=== PATIENT | male | born 1970 | race Caucasian/White ===

== ENCOUNTER 2019-11-04 15:26 | Observation (INO) | payer BC ==
[2019-11-05 06:39] VITALS: RESP 16
[2019-11-05 11:10] VITALS: BP 148/77; PULSE 70; TEMP 98.1
== END 2019-11-05 15:25 | disposition home or self-care (01) ==
LOC: EC 15:26 → INTOOBSV 19:18 → 3SCARD 19:18 → UNDODISIN 11-05 15:25
PROVIDERS: ADMIT Hospitalist; ATTEND Hospitalist
DX: I16.0 Hypertensive urgency (principal); I10 Essential (primary) hypertension; M19.079 Primary osteoarthritis, unspecified ankle and foot; I45.10 Unspecified right bundle-branch block; J32.2 Chronic ethmoidal sinusitis; J32.3 Chronic sphenoidal sinusitis; Z79.899 Other long term (current) drug therapy; Z82.49 Family history of ischemic heart disease and other diseases of the circulatory system; Z82.3 Family history of stroke
CPT/HCPCS: 96376; 96361; 96374; 99285; 36415; 93005; 80053; 83735; 84484; 85025; 85610; 85730; 71046; 70450; G0378 ×2; J0360

== ENCOUNTER 2024-06-16 20:14 | Observation (INO) | payer BC ==
--- NOTE | 2024-06-16 20:50 | ED ---
Abdominal Pain HPI - General Chief Complaint: Abdominal Pain Stated Complaint: ABD Pain, Fever, Diahrrea Time Seen by Provider: 06/16/24 20:40 Source: patient, RN notes reviewed Mode of arrival: ambulatory Limitations: no limitations - History of Present Illness Initial Comments: This is a 53-year-old male who presents to the emergency department for abd ominal pain. Over the last 2 weeks he has been dealing with centralized abdominal pain that seems to be worse on the left side. Reports associated diarrhea and nausea. Having diarrhea at least 10 times a day. He initially went to urgent care and was started on Cipro and Flagyl. He finished both of these medications, but states that the pain continues to get worse. Started developing fevers over the last few days. Denies any history of similar pain in the past. MD Complaint: abdominal pain - Related Data Previous Rx's Medication Instructions Recorded amLODIPine [Norvasc] 10 mg PO DAILY #30 tab 11/05/19 Allergies Allergy/AdvReac Type Severity Reaction Status Date / Time No Known Allergies Allergy Verified 06/16/24 20:28 Review of Systems ROS Statement: Those systems with pertinent positive or pertinent negative responses have been documented in the HPI. ROS Other: All systems not noted in ROS Statement are negative. Past Medical History Past Medical History: No Reported History Additional Past Medical History / Comment(s): arthritis in his foot History of Any Multi-Drug Resistant Organisms: None Reported Past Surgical History: Hernia Repair Additional Past Surgical History / Comment(s): hernia repair x2 Additional Past Anesthesia/Blood Transfusion Reaction / Comment(s): per pts. they were told he stopped breathing during his hernia repair and had to be intubated Past Psychological History: No Psychological Hx Reported Smoking Status: Never smoker Past Alcohol Use History: None Reported Past Drug Use History: None Reported - Past Family History Father Family Medical History: Coronary Artery Disease (CAD), CVA/TIA General Exam Limitations: no limitations General appearance: alert, in no apparent distress Head exam: Present: atraumatic, normocephalic, normal inspection Respiratory exam: Present: normal lung sounds bilaterally. Absent: respiratory distress, wheezes, rales, rhonchi, stridor Cardiovascular Exam: Present: regular rate, normal rhythm, normal heart sounds. Absent: systolic murmur, diastolic murmur, rubs, gallop, clicks GI/Abdominal exam: Present: soft, tenderness (diffuse), normal bowel sounds. Absent: distended Neurological exam: Present: alert, oriented X3, CN II-XII intact Psychiatric exam: Present: normal affect, normal mood Skin exam: Present: warm, dry, intact, normal color. Absent: rash Course Vital Signs 06/16/24 06/17/24 06/17/24 20:25 04:41 05:17 Temperature 101.2 F H 97.7 F Pulse Rate 110 H 77 77 Respiratory 18 16 16 Rate Blood Pressure 158/83 116/64 132/84 O2 Sat by Pulse 97 99 97 Oximetry Medical Decision Making - Medical Decision Making This is a 53 year old male who presents to the emergency department for abdominal pain. Was pt. sent in by a medical professional or institution? @ -No Did you speak to anyone other than the patient for history? @ -No Did you review nursing and triage notes? @ -Yes, and I agree, it is accurate with regards to the patient's symptoms. Were old charts reviewed? @ -No Differential Diagnosis? @ -Differential Abdominal Pain Men: Appendicitis, cholecystitis, diverticulosis, ischemic bowel, pancreatitis, hepatitis, UTI, gastroenteritis, AAA, incarcerated hernia, bowel obstruction, constipation, inflammatory bowel, hepatitis, peptic ulcer disease, splenic infarction, perforated viscus, testicular torsion, this is not meant to be an all-inclusive list EKG interpreted by me (3pts min.)? @ -Not obtained X-rays interpreted by me (1pt min.)? @ -Not obtained CT interpreted by me (1pt min.)? @ -CT scan of the abdomen and pelvis obtained. My interpretation identifies no dilation of the bowel loops. U/S interpreted by me (1pt. min.)? @ -Not obtained What testing was considered but not performed? (CT, X-rays, U/S, labs)? Why? @ -None What meds were considered but not given? Why? @ -None Did you discuss the management of the patient with other professionals? @ -Yes, Dr. Mckeon, who accepts the patient for admission. Did you reconcile home meds? @ -No Was smoking cessation discussed for >3mins.? @ -No Was critical care preformed (if so, how long)? @ -No Were there social determinants of health that impacted care today? How? (Homelessness, low income, unemployed, alcoholism, drug addiction, transport ation, low edu. Level, literacy, decrease access to med. care, senior living, rehab)? @ -No Was there de-escalation of care discussed even if they declined? (Discuss DNR or withdrawal of care, Hospice)? @ -No What co-morbidities impacted this encounter? (DM, HTN, Smoking, COPD, CAD, Cancer, CVA, Hep., AIDS, mental health diagnosis, sleep apnea, morbid obesity)? @ -None Was patient admitted / discharged? @ -Admitted. Patient was febrile and tachycardic on arrival. Lab work demonstrates leukocytosis. CT scan of the abdomen and pelvis demonstrates acute uncomplicated colitis involving the transverse and left colon suggestive of inflammatory or infectious colitis. The leukocytosis with associated fever and progressive symptoms is concerning for infection. Patient admitted to medicine for infectious colitis and failed outpatient management. Consult placed for ID. C. diff and stool culture ordered and pending at the time of admission. Started on Zosyn in the mean time as he has already been on a trial of Cipro and Flagyl. Case discussed with ED attending, Dr. Hernandez. Undiagnosed new problem with uncertain prognosis? @ -None Drug Therapy requiring intensive monitoring for toxicity (Heparin, Nitro, Insulin, Cardizem)? @ -None Were any procedures done? @ -None Diagnosis/symptom? @ -Infectious colitis Acute, or Chronic, or Acute on Chronic? @ -Acute Uncomplicated (without systemic symptoms) or Complicated (systemic symptoms)? @ -Complicated Side effects of treatment? @ -None Exacerbation, Progression, or Severe Exacerbation] @ -Not applicable Poses a threat to life or bodily function? @ -Yes, worsening infection can lead to septic shock and - Lab Data Result diagrams: 06/16/24 20:54 06/16/24 20:54 Lab Results 06/16/24 06/16/24 06/16/24 Range/Units 20:54 20:54 20:54 WBC 14.6 H (3.8-10.6) k/uL RBC 4.97 (4.30-5.90) m/uL Hgb 14.7 (13.0-17.5) gm/dL Hct 43.6 (39.0-53.0) % MCV 87.6 (80.0-100.0) fL MCH 29.5 (25.0-35.0) pg MCHC 33.7 (31.0-37.0) g/dL RDW 12.9 (11.5-15.5) % Plt Count 258 (150-450) k/uL MPV 7.1 Neutrophils % 86 % Lymphocytes % 6 % Monocytes % 7 % Eosinophils % 1 % Basophils % 0 % Neutrophils # 12.5 H (1.3-7.7) k/uL Lymphocytes # 0.8 L (1.0-4.8) k/uL Monocytes # 1.0 (0-1.0) k/uL Eosinophils # 0.2 (0-0.7) k/uL Basophils # 0.0 (0-0.2) k/uL Sodium 134 L (137-145) mmol/L Potassium 4.2 (3.5-5.1) mmol/L Chloride 104 (98-107) mmol/L Carbon Dioxide 23 (22-30) mmol/L Anion Gap 7 mmol/L BUN 20 (9-20) mg/dL Creatinine 1.11 (0.66-1.25) mg/dL Est GFR (CKD-EPI)AfAm 87 (>60 ml/min/1.73 sqM) Est GFR (CKD-EPI)NonAf 76 (>60 ml/min/1.73 sqM) Glucose 99 (74-99) mg/dL Plasma Lactic Acid Jian 1.2 (0.7-2.0) mmol/L Calcium 9.3 (8.4-10.2) mg/dL Phosphorus 3.7 (2.5-4.5) mg/dL Magnesium 1.6 (1.6-2.3) mg/dL Total Bilirubin 3.0 H (0.2-1.3) mg/dL AST 28 (17-59) U/L ALT 31 (4-49) U/L Alkaline Phosphatase 68 (38-126) U/L Total Protein 6.3 (6.3-8.2) g/dL Albumin 3.9 (3.5-5.0) g/dL Amylase 51 (30-110) U/L Lipase 43 (23-300) U/L - Radiology Data Radiology results: report reviewed, image reviewed Disposition Clinical Impression: Infectious colitis, Failure of outpatient treatment Disposition: ADMITTED IP TO THIS HOSP
[2024-06-16 21:27] LABS: ALT 31 U/L (4-49); AST 28 U/L (17-59); African American GFR (CKD) 87 (>60 ml/min/1.73 sqM); Albumin 3.9 g/dL (3.5-5.0); Alkaline Phosphatase 68 U/L (38-126); Amylase 51 U/L (30-110); Anion Gap 7 mmol/L; Blood Urea Nitrogen 20 mg/dL (9-20); Calcium 9.3 mg/dL (8.4-10.2); Carbon Dioxide 23 mmol/L (22-30); Chloride 104 mmol/L (98-107); Glucose 99 mg/dL (74-99); Lipase 43 U/L (23-300); Magnesium 1.6 mg/dL (1.6-2.3); Non-African American GFR(CKD) 76 (>60 ml/min/1.73 sqM); Phosphorus 3.7 mg/dL (2.5-4.5); Potassium 4.2 mmol/L (3.5-5.1); Sodium 134 mmol/L (137-145); Total Protein 6.3 g/dL (6.3-8.2)
[2024-06-16 21:38] LABS: Basophils % (A) 0 %; Eosinophils # (A) 0.2 k/uL (0-0.7); Eosinophils % (A) 1 %; HCT 43.6 % (39.0-53.0); HGB 14.7 gm/dL (13.0-17.5); Lymphocytes # (A) 0.8 k/uL (1.0-4.8); Lymphocytes % (A) 6 %; MCH 29.5 pg (25.0-35.0); MCHC 33.7 g/dL (31.0-37.0); MCV 87.6 fL (80.0-100.0); Mean Platelet Volume 7.1; Monocytes % (A) 7 %; Neutrophils # (A) 12.5 k/uL (1.3-7.7); Neutrophils % (A) 86 %; Platelet Count 258 k/uL (150-450); RBC 4.97 m/uL (4.30-5.90); RDW 12.9 % (11.5-15.5); WBC 14.6 k/uL (3.8-10.6)
--- NOTE | 2024-06-16 22:14 | CT ---
EXAMINATION TYPE: CT abdomen pelvis w con DATE OF EXAM: 06/16/2024 COMPARISON: None. HISTORY: Left side abdominal pain. CT DLP: 771.4 mGycm, Automated Exposure Control for Dose Reduction was Utilized. CONTRAST: CT scan of the abdomen and pelvis is performed without oral and with IV Contrast, patient injected wi th 100ml mL of Isovue 300. FINDINGS: LUNG BASES: No significant abnormality is appreciated. LIVER/GB: A few benign-appearing calcifications in the posterior right hepatic dome are present. PANCREAS: No significant abnormality is seen. SPLEEN: No significant abnormality is seen. ADRENALS: No significant abnormality is seen. KIDNEYS: No significant abnormality is seen. BOWEL: Suboptimal evaluation of bowel without enteric contrast. Appendix within normal limits for bas e of cecum. There is moderate wall thickening in the transverse colon extending into the left colon. No free air or mesenteric air. No well-formed fluid collection or abscess. No abnormal small or large bowel dilatation. PROSTATE/SEMINAL VESICLES: No gross abnormality seen. LYMPH NODES: No greater than 1cm abdominal or pelvic lymph nodes are appreciated. OSSEOUS STRUCTURES: Moderate axial narrowing and spurring in both hip joints. 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 IMPRESSION: An uncomplicated acute colitis involving the transverse and left colon is thought present . Differential includes inflammatory and infectious etiologies. Correlate clinically.
[2024-06-17] MEDS ORDERED: KETOROLAC 15 MG/ML 1 ML VIAL IVP PRN (04:15)
[2024-06-17] MEDS ORDERED: HYDROcodone/APAP 5-325MG 1 EACH TAB PO PRN (04:15)
[2024-06-17] MEDS ORDERED: MORPHINE SULFATE 4 MG/ML SYRINGE IV PRN (04:15)
[2024-06-17] MEDS ORDERED: ONDANSETRON 4 MG/2 ML VIAL IVP PRN (04:15)
[2024-06-17] MEDS ORDERED: NALOXONE 0.4 MG/ML 1 ML VIAL IV PRN (04:15)
[2024-06-17] MEDS: SODIUM CHLORIDE 0.9% 1,000 ML IV SCH (05:13)
[2024-06-17] MEDS: PIPERACILLIN-TAZOBACTAM 3.375 GM in SODIUM CHLORIDE 0.9% 100 ML IVPB SCH (05:52)
--- NOTE | 2024-06-17 09:10 | P.GSCN ---
History of Present Illness Consult date: 06/17/24 Reason for Consult: colitis History of present illness: This is a 53-year-old male who presents to the emergency department for abdominal pain. Over the last 2 weeks he has been dealing with centralized abdominal pain that seems to be worse on the left side. Reports associated diarrhea and nausea. Having diarrhea at least 10 times a day. He initially went to urgent care and was started on Cipro and Flagyl. He finished both of these medications, but states that the pain continues to get worse. Started developing fevers over the last few days. Denies any history of similar pain in the past. patient currently denies nausea, vomiting, fevers, chills, shortness of breath or chest pain. Denies recent weight loss or loss of appetite or night sweats. Patient denies any alleviating factors at home denies pain with certain foods. Review of Systems All systems: negative - Constitutional Constitutional Comment(s): we have systems negative except for the above HPI Reports as per HPI Past Medical History Past Medical History: No Reported History Additional Past Medical History / Comment(s): arthritis in his foot History of Any Multi-Drug Resistant Organisms: None Reported Past Surgical History: Hernia Repair Additional Past Surgical History / Comment(s): hernia repair x2 Additional Past Anesthesia/Blood Transfusion Reaction / Comm: per pts. they were told he stopped breathing during his hernia repair and had to be intubated Past Psychological History: No Psychological Hx Reported Smoking Status: Never smoker Past Alcohol Use History: None Reported Past Drug Use History: None Reported - Past Family History Father Family Medical History: Coronary Artery Disease (CAD), CVA/TIA Medications and Allergies Home Medications Medication Instructions Recorded Confirmed Type Atorvastatin [Lipitor] 20 mg PO HS 06/17/24 06/17/24 History amLODIPine BESYLATE/BENAZEPRIL 1 cap PO DAILY 06/17/24 06/17/24 History [amLODIPine BESYLATE/BENAZEPRIL 10-40 mg] Allergies Allergy/AdvReac Type Severity Reaction Status Date / Time No Known Allergies Allergy Verified 06/17/24 07:20 Surgical - Exam Osteopathic Statement: *. No significant issues noted on an osteopathic structural exam other than those noted in the History and Physical/Consult. Vital Signs Temp Pulse Resp BP Pulse Ox 101.2 F H 110 H 18 158/83 97 06/16/24 20:25 06/16/24 20:25 06/16/24 20:25 06/16/24 20:25 06/16/24 20:25 Gen. acute distress alert and oriented 3 HEENT atraumatic normocephalic eyes PERRLA oral mucosa moist no neck masses appreciated Cardiovascular regular rhythm Pulmonary no breathing Abdomen is soft, tender to palpation a left lower quadrant with deep palpation, no guarding or rebound tenderness, not peritoneal, not a surgical abdomen Extremities palpable DP PT pulses bilaterally Results - Labs 06/16/24 20:54 06/16/24 20:54 Abnormal Lab Results - Last 24 Hours (Table) 06/16/24 06/16/24 Range/Units 20:54 20:54 WBC 14.6 H (3.8-10.6) k/uL Neutrophils # 12.5 H (1.3-7.7) k/uL Lymphocytes # 0.8 L (1.0-4.8) k/uL Sodium 134 L (137-145) mmol/L Total Bilirubin 3.0 H (0.2-1.3) mg/dL Diabetes panel 06/16/24 Range/Units 20:54 Sodium 134 L (137-145) mmol/L Potassium 4.2 (3.5-5.1) mmol/L Chloride 104 (98-107) mmol/L Carbon Dioxide 23 (22-30) mmol/L BUN 20 (9-20) mg/dL Creatinine 1.11 (0.66-1.25) mg/dL Glucose 99 (74-99) mg/dL Calcium 9.3 (8.4-10.2) mg/dL AST 28 (17-59) U/L ALT 31 (4-49) U/L Alkaline Phosphatase 68 (38-126) U/L Total Protein 6.3 (6.3-8.2) g/dL Albumin 3.9 (3.5-5.0) g/dL Calcium panel 06/16/24 Range/Units 20:54 Calcium 9.3 (8.4-10.2) mg/dL Phosphorus 3.7 (2.5-4.5) mg/dL Albumin 3.9 (3.5-5.0) g/dL Pituitary panel 06/16/24 Range/Units 20:54 Sodium 134 L (137-145) mmol/L Potassium 4.2 (3.5-5.1) mmol/L Chloride 104 (98-107) mmol/L Carbon Dioxide 23 (22-30) mmol/L BUN 20 (9-20) mg/dL Creatinine 1.11 (0.66-1.25) mg/dL Glucose 99 (74-99) mg/dL Calcium 9.3 (8.4-10.2) mg/dL Adrenal panel 06/16/24 Range/Units 20:54 Sodium 134 L (137-145) mmol/L Potassium 4.2 (3.5-5.1) mmol/L Chloride 104 (98-107) mmol/L Carbon Dioxide 23 (22-30) mmol/L BUN 20 (9-20) mg/dL Creatinine 1.11 (0.66-1.25) mg/dL Glucose 99 (74-99) mg/dL Calcium 9.3 (8.4-10.2) mg/dL Total Bilirubin 3.0 H (0.2-1.3) mg/dL AST 28 (17-59) U/L ALT 31 (4-49) U/L Alkaline Phosphatase 68 (38-126) U/L Total Protein 6.3 (6.3-8.2) g/dL Albumin 3.9 (3.5-5.0) g/dL Assessment and Plan Assessment: 53-year-old male with left lower quadrant abdominal pain secondary to colitis Suspicious for uncomplicated diverticulitis Continue IV antibiotics -Continue regular diet Although patient had colonoscopy 1 year ago patient may benefit from repeat colonoscopy 6 weeks after decrease inflammation Given clinical exam, patient may likely be able to be discharged in the next 24-48 hours Time with Patient: Less than 30
[2024-06-17] MEDS: IBUPROFEN 400 MG TAB PO PRN (09:37)
[2024-06-17] MEDS: PANTOPRAZOLE 40 MG/10 ML VIAL IV SCH (09:39)
--- NOTE | 2024-06-17 14:32 | P.HPIM ---
History of Present Illness H&P Date: 06/17/24 Chief Complaint: Abdominal pain, nausea vomiting diarrhea This is a 53-year-old gentleman with past medical history significant for hypertension, hyperlipidemia presented to the ER with complaints of nausea, multiple daily episodes of diarrhea and abdominal pain on and off times approximately 2 weeks since his return from a trip to [place]. Reports abdominal "soreness", worse on the left side. Completed Cipro and Flagyl, prescribed at a urgent care center without significant improvement, accompanied by fevers and presented to the ER. Denies prior occurrences. reports while in [place] did not consume sushi, raw fish; consumed [employer] hot chicken. denies chest pain, palpitations or shortness of breath. Tachycardic on admission with Tmax 101.2, WBC 14.6. CT of abdomen pelvis reported moderate wall thickening in the transverse colon extending into the left colon no free air or mesenteric air, no well-formed fluid collection or abscess, no abnormal small or large bowel dilatation, small to moderate size fat-containing left inguinal hernia.initiated on IV fluids and Zosyn. Review of Systems ROS Statement: Those systems with pertinent positive or pertinent negative responses have been documented in the HPI. ROS Other: All systems not noted in ROS Statement are negative. Past Medical History Past Medical History: No Reported History Additional Past Medical History / Comment(s): arthritis in his foot History of Any Multi-Drug Resistant Organisms: None Reported Past Surgical History: Hernia Repair Additional Past Surgical History / Comment(s): hernia repair x2 Additional Past Anesthesia/Blood Transfusion Reaction / Comment(s): per pts. they were told he stopped breathing during his hernia repair and had to be intubated Past Psychological History: No Psychological Hx Reported Smoking Status: Never smoker Past Alcohol Use History: None Reported Past Drug Use History: None Reported - Past Family History Father Family Medical History: Coronary Artery Disease (CAD), CVA/TIA Medications and Allergies Home Medications Medication Instructions Recorded Confirmed Type Atorvastatin [Lipitor] 20 mg PO HS 06/17/24 06/17/24 History amLODIPine BESYLATE/BENAZEPRIL 1 cap PO DAILY 06/17/24 06/17/24 History [amLODIPine BESYLATE/BENAZEPRIL 10-40 mg] Allergies Allergy/AdvReac Type Severity Reaction Status Date / Time No Known Allergies Allergy Verified 06/17/24 07:20 Physical Exam Vitals: Vital Signs Temp Pulse Pulse Resp BP BP Pulse Ox 06/17/24 05:55 98.0 F 76 16 116/72 97 06/17/24 05:17 77 16 132/84 97 06/17/24 04:41 97.7 F 77 16 116/64 99 06/16/24 20:25 101.2 F H 110 H 18 158/83 97 Intake and Output 06/16/24 06/17/24 06/17/24 22:59 06:59 14:59 Intake Total 118 Balance 118 Intake: Oral 118 Other: Voiding Method Toilet Weight 83.915 kg 83.915 kg PHYSICAL EXAM: VITAL SIGNS: [As above] GENERAL: Well-nourished ,alert and oriented x 3, sitting up in bed, no acute distress HEENT: Normocephalic, atraumatic conjunctivae normal. eyes normal. NECK: Supple, no JVD. No thyroid enlargement. No LNs CARDIOVASCULAR: S1, S2 regular.. No murmur RESPIRATION: Unlabored, equal air entry, breath sounds diminished in the bases. No rhonchi or crackles. No bronchial breathing. ABDOMEN: Soft, nondistended, mild left lower quadrant tenderness. No guarding. no masses palpable. No ascites, No hepatosplenomegaly.Bowel sounds heard. LEGS: No edema. no swelling NERVOUS SYSTEM: Cranial N 2-12 grossly normal. No focal deficits. Strength and sensation grossly intact.. Skin: Warm and dry, no rash. Results CBC & Chem 7: 06/16/24 20:54 06/16/24 20:54 Labs: Abnormal Lab Results - Last 24 Hours (Table) 06/16/24 06/16/24 Range/Units 20:54 20:54 WBC 14.6 H (3.8-10.6) k/uL Neutrophils # 12.5 H (1.3-7.7) k/uL Lymphocytes # 0.8 L (1.0-4.8) k/uL Sodium 134 L (137-145) mmol/L Total Bilirubin 3.0 H (0.2-1.3) mg/dL Assessment and Plan Assessment: Sepsis secondary to abdominal pain, left lower quadrant, CT reporting colitis, possible diverticulitis Hypertension For lipidemia Plan: Continue on current medication regimen, urgent and symptomatic treatment. Maintain IV fluid hydration and antibiotics. Infectious disease and general surgery consults in place, recommendations pending. The impression and plan of care has been dictated as directed. : I performed a history and examination of this patient, discussed the same with the dictator. I agree with the dictator's note ,documented as a scribe. Any additional findings or plans will be noted.
[2024-06-17 15:06] LABS: Appearance,Urine Clear (Clear); Bilirubin,Urine Negative (Negative); Blood,Urine Negative (Negative); Color,Urine Yellow; Glucose,Urine (UA) Negative (Negative); Ketones,Urine Negative (Negative); Leukocyte Esterase,Urine Negative (Negative); Mucus,Urine Occasional /hpf; Nitrite,Urine Negative (Negative); Protein,Urine 1+ (Negative); RBC,Urine <1 /hpf (0-5); Specific Gravity,Urine 1.043 (1.001-1.035); Squamous Epithelial Cell,Urine 1 /hpf (0-4); Urobilinogen,Urine <2.0 mg/dL (<2.0); WBC,Urine 2 /hpf (0-5)
[2024-06-17] MEDS: CHOLESTYRAMINE (WITH SUGAR) 4 GM PACKET PO SCH (17:16)
--- NOTE | 2024-06-17 21:43 | P.CONS ---
History of Present Illness - Reason for Consult Consult date: 06/17/24 Infectious colitis failure of outpatient treatment Requesting physician: Linda Silva - Chief Complaint Abdominal pain and diarrhea x 2 weeks - History of Present Illness Patient is a 53-year-old male with a past medical history significant for arthritis hernia repair x 2 never smoker presenting to the hospital for evaluation of abdominal pain with the patient symptoms of abdominal pain has been going on for the last 2 weeks describing it to be sharp moderate intensity worse on the left side without any radiation also having diarrhea about 10 loose stools per day denies any blood or mucus in the stool did have some nausea but no vomiting patient has been treated with oral Cipro and Flagyl for the last 10 days without any improvement for the patient presents to the hospital on arrival to the ER the patient was running a fever of 101.2 F patient was not tachycardic hypotensive or hypoxic patient did have white count 14.6 with a left shift creatinine normal electrolytes normal liver enzymes normal except for bilirubin of 3.0, UA has been negative patient tested negative for C. difficile did have abdominal pelvis CT did shows uncomplicated acute colitis involving the transverse and left colon includes inflammatory infectious etiology patient was started on Zosyn infectious disease was consulted for further management of antibiotic therapy has been evaluated by general surgery recommending no surgical intervention or colonoscopy at this point Review of Systems Positive point and negatives has been mentioned in the HPI, complete review of systems was performed and all other systems are negative Past Medical History Past Medical History: No Reported History Additional Past Medical History / Comment(s): arthritis in his foot History of Any Multi-Drug Resistant Organisms: None Reported Past Surgical History: Hernia Repair Additional Past Surgical History / Comment(s): hernia repair x2 Additional Past Anesthesia/Blood Transfusion Reaction / Comm: per pts. they were told he stopped breathing during his hernia repair and had to be intubated Past Psychological History: No Psychological Hx Reported Smoking Status: Never smoker Past Alcohol Use History: None Reported Past Drug Use History: None Reported - Past Family History Father Family Medical History: Coronary Artery Disease (CAD), CVA/TIA Medications and Allergies Home Medications Medication Instructions Recorded Confirmed Type Atorvastatin [Lipitor] 20 mg PO HS 06/17/24 06/17/24 History amLODIPine BESYLATE/BENAZEPRIL 1 cap PO DAILY 06/17/24 06/17/24 History [amLODIPine BESYLATE/BENAZEPRIL 10-40 mg] Allergies Allergy/AdvReac Type Severity Reaction Status Date / Time No Known Allergies Allergy Verified 06/17/24 07:20 Physical Exam Vitals: Vital Signs Temp Pulse Pulse Resp BP BP Pulse Ox 06/17/24 05:55 98.0 F 76 16 116/72 97 06/17/24 05:17 77 16 132/84 97 06/17/24 04:41 97.7 F 77 16 116/64 99 06/16/24 20:25 101.2 F H 110 H 18 158/83 97 Intake and Output 06/16/24 06/17/24 06/17/24 22:59 06:59 14:59 Intake Total 118 Balance 118 Intake: Oral 118 Other: Voiding Method Toilet Weight 83.915 kg 83.915 kg GENERAL DESCRIPTION: Middle-aged male lying in bed, no distress. No tachypnea or accessory muscle of respiration use. HEENT: Shows Pallor , no scleral icterus. Oral mucous membrane is dry. No pharyngeal erythema or thrush NECK: Trachea central, no thyromegaly. LUNGS: Unlabored breathing. Clear to auscultation anteriorly. No wheeze or crackle. HEART: S1, S2, regular rate and rhythm. No loud murmur ABDOMEN: Soft, mild tenderness , guarding or rigidity, no organomegaly EXTREMITIES: No edema of feet. SKIN: No rash, no masses palpable. NEUROLOGICAL: The patient is awake, alert, oriented x3, mood and affect normal. Results CBC & Chem 7: 06/18/24 05:42 06/18/24 05:42 Labs: Abnormal Lab Results - Last 24 Hours (Table) 06/16/24 06/16/24 Range/Units 20:54 20:54 WBC 14.6 H (3.8-10.6) k/uL Neutrophils # 12.5 H (1.3-7.7) k/uL Lymphocytes # 0.8 L (1.0-4.8) k/uL Sodium 134 L (137-145) mmol/L Total Bilirubin 3.0 H (0.2-1.3) mg/dL Assessment and Plan (1) Sepsis Current Visit: Yes Status: Acute Code(s): A41.9 - SEPSIS, UNSPECIFIED ORGANISM SNOMED Code(s): 75119933 (2) Failure of outpatient treatment Current Visit: Yes Status: Acute Code(s): Z78.9 - OTHER SPECIFIED HEALTH STATUS SNOMED Code(s): 597799489 (3) Infectious colitis Current Visit: Yes Status: Acute Code(s): A09 - INFECTIOUS GASTROENTERITIS AND COLITIS, UNSPECIFIED SNOMED Code(s): 11182921 Plan: 1patient presented hospital with sepsis in this patient who did have a fever elevated white count meeting criteria for SIRS source is likely colitis with a question of diverticulitis uncomplicated no evidence of any perforation or abscess formation will need to cover for the enteric gram-negative both aerobes and anaerobes failing outpatient oral Cipro therapy 2check a stool culture and stool for Cryptosporidium 3Zosyn 3.37 g every 8 hours shouldprovide adequate antibiotic coverage along with bowel rest We will follow on clinical condition and cultures to further adjust medication if needed Thank you for this consultation we will follow the patient along with you Dictation was produced using [employer] dictation software. please excuse any grammatical, word or spelling errors.
[2024-06-18 08:35] LABS: Cryptosporidium Antigen Negative (Negative)
[2024-06-18 10:42] LABS: Basophils # (A) 0.03 X 10*3/uL (0.00-0.10); Basophils % (A) 0.4 %; Eosinophils # (A) 0.48 X 10*3/uL (0.04-0.35); Eosinophils % (A) 6.6 %; HCT 38.7 % (39.6-50.0); HGB 12.6 g/dL (13.0-17.0); Lymphocytes # (A) 1.35 X 10*3/uL (0.90-5.00); Lymphocytes % (A) 18.6 %; MCH 28.3 pg (27.0-32.0); MCHC 32.6 g/dL (32.0-37.0); Monocytes # (A) 0.72 X 10*3/uL (0.20-1.00); Monocytes % (A) 9.9 %; NRBC Per 100 WBC 0 X 10*3/uL (0.00-0.01); Neutrophils # (A) 4.61 X 10*3/uL (1.80-7.70); Neutrophils % (A) 63.5 %; Platelet Count 208 X 10*3/uL (140-440); RBC 4.45 X 10*6/uL (4.40-5.60); RDW 13.2 % (11.5-14.5); WBC 7.26 X 10*3/uL (4.50-10.00)
[2024-06-18 10:56] LABS: BUN/Creat Ratio 13.08 Ratio (12.00-20.00); Blood Urea Nitrogen 15.7 mg/dL (9.0-27.0); Calcium 8.3 mg/dL (8.7-10.3); Carbon Dioxide 23.7 mmol/L (21.6-31.8); Chloride 108 mmol/L (96-109); Glucose 89 mg/dL (70-110); Magnesium 1.9 mg/dL (1.5-2.4); Potassium 4.3 mmol/L (3.5-5.5); Sodium 141 mmol/L (135-145)
--- NOTE | 2024-06-18 13:03 | P.PN ---
Subjective Progress Note Date: 06/18/24 Principal diagnosis: Reason for follow-up is colitis Patient is a 53-year-old male with a past medical history significant for arthritis hernia repair x 2 never smoker presenting to the hospital for evaluation of abdominal pain symptom has been going on for about 2 weeks failing outpatient oral Cipro and Flagyl CT abdominal pelvis shows evidence of colitis involving the transverse and descending colon.Stool for C. difficile negative. On today's evaluation that is 06/18/2024, Patient is afebrile this morning patient denies having any chest pain shortness of breath or cough, the patient is breathing comfortably and currently on room air, patient abdominal pain has decreased in intensity still having diarrhea although decreased in frequency no vomiting. The patient white count normalized to 7.26 creatinine is 1.2 Objective - Vital Signs Vital signs: Vital Signs Temp 98.7 F 06/18/24 07:00 Pulse 68 06/18/24 07:00 Resp 16 06/18/24 07:00 BP 131/79 06/18/24 07:00 Pulse Ox 97 06/18/24 07:00 FiO2 Intake & Output 06/17/24 06/18/24 06/18/24 18:59 06:59 18:59 Intake Total 236 118 Balance 236 118 Intake: Oral 236 118 Other: # Voids 8 1 # Bowel Movements 8 - Exam GENERAL DESCRIPTION: Middle-age male up in the chair in no distress RESPIRATORY SYSTEM: Unlabored breathing , decreased breath sounds at bases HEART: S1 S2 regular rate and rhythm , ABDOMEN: Soft , no tenderness EXTREMITIES: No edema feet - Labs CBC & Chem 7: 06/18/24 05:42 06/18/24 05:42 Labs: Abnormal Lab Results - Last 24 Hours (Table) 06/17/24 06/17/24 06/18/24 Range/Units 12:02 14:43 05:42 Hgb 12.6 L (13.0-17.0) g/dL Hct 38.7 L (39.6-50.0) % Immature Gran # 0.07 H (0.00-0.04) X 10*3/uL Eosinophils # 0.48 H (0.04-0.35) X 10*3/uL Calcium (8.7-10.3) mg/dL Ur Specific [place] 1.043 H (1.001-1.035) Urine Protein 1+ H (Negative) Urine Mucus Occasional H (None) /hpf Stool Lactoferrin Positive A (Negative) 06/18/24 Range/Units 05:42 Hgb (13.0-17.0) g/dL Hct (39.6-50.0) % Immature Gran # (0.00-0.04) X 10*3/uL Eosinophils # (0.04-0.35) X 10*3/uL Calcium 8.3 L (8.7-10.3) mg/dL Ur Specific [place] (1.001-1.035) Urine Protein (Negative) Urine Mucus (None) /hpf Stool Lactoferrin (Negative) Assessment and Plan (1) Sepsis Current Visit: Yes Status: Acute Code(s): A41.9 - SEPSIS, UNSPECIFIED ORGANISM SNOMED Code(s): 24940600 (2) Failure of outpatient treatment Current Visit: Yes Status: Acute Code(s): Z78.9 - OTHER SPECIFIED HEALTH STATUS SNOMED Code(s): 954217894 (3) Infectious colitis Current Visit: Yes Status: Acute Code(s): A09 - INFECTIOUS GASTROENTERITIS AND COLITIS, UNSPECIFIED SNOMED Code(s): 99950928 Plan: 1patient presented hospital with sepsis in this patient who did have a fever elevated white count meeting criteria for SIRS source is likely colitis with a question of diverticulitis uncomplicated no evidence of any perforation or abscess formation will need to cover for the enteric gram-negative both aerobes and anaerobes failing outpatient oral Cipro therapy 2 stool for Cryptosporidium, C. difficile negative stool culture pending 3patient did have improvement of white count we will continue Zosyn 3.37 g every 8 hours and monitor clinical course closely Dictation was produced using [employer] dictation software. please excuse any grammatical, word or spelling errors. Time with Patient: Less than 30
--- NOTE | 2024-06-18 13:33 | P.PN ---
Subjective Progress Note Date: 06/18/24 Patient seen and examined at bedside. Tolerating diet during exam. States abdominal pain has improved and now is on and off. Having multiple episodes of loose bowel movements. Denies any significant bleeding and bowel movement. Objective - Vital Signs Vital signs: Vital Signs Temp 98.7 F 06/18/24 07:00 Pulse 68 06/18/24 07:00 Resp 16 06/18/24 07:00 BP 131/79 06/18/24 07:00 Pulse Ox 97 06/18/24 07:00 FiO2 Intake & Output 06/17/24 06/18/24 06/18/24 18:59 06:59 18:59 Intake Total 236 118 Balance 236 118 Intake: Oral 236 118 Other: # Voids 8 1 # Bowel Movements 8 - Constitutional General appearance: Present: cooperative, no acute distress - Gastrointestinal Gastrointestinal Comment(s): Soft nontender nondistended no rebound no guarding - Labs CBC & Chem 7: 06/18/24 05:42 06/18/24 05:42 Labs: Abnormal Lab Results - Last 24 Hours (Table) 06/17/24 06/17/24 06/18/24 Range/Units 12:02 14:43 05:42 Hgb 12.6 L (13.0-17.0) g/dL Hct 38.7 L (39.6-50.0) % Immature Gran # 0.07 H (0.00-0.04) X 10*3/uL Eosinophils # 0.48 H (0.04-0.35) X 10*3/uL Calcium (8.7-10.3) mg/dL Ur Specific [place] 1.043 H (1.001-1.035) Urine Protein 1+ H (Negative) Urine Mucus Occasional H (None) /hpf Stool Lactoferrin Positive A (Negative) 06/18/24 Range/Units 05:42 Hgb (13.0-17.0) g/dL Hct (39.6-50.0) % Immature Gran # (0.00-0.04) X 10*3/uL Eosinophils # (0.04-0.35) X 10*3/uL Calcium 8.3 L (8.7-10.3) mg/dL Ur Specific [place] (1.001-1.035) Urine Protein (Negative) Urine Mucus (None) /hpf Stool Lactoferrin (Negative) Assessment and Plan Plan: 53-year-old male with concern for colitis/diverticulitis. Abdominal pain appears to be improving. Tolerating diet at this time. Recommend continuing IV antibiotics with ID recommendations. Continue diet as patient is improving with this management. Further recommendations based on patient's clinical progress. Last colonoscopy was 1 year ago and will likely benefit from repeat colonoscopy in about 6 to 8 weeks.
--- NOTE | 2024-06-19 10:15 | P.PN ---
Subjective Progress Note Date: 06/19/24 Patient seen and examined at bedside. States he is feeling better today. Denies any significant abdominal pain currently. States overnight he did have multiple episodes of urination. Objective - Vital Signs Vital signs: Vital Signs Temp 98.2 F 06/19/24 07:00 Pulse 71 06/19/24 07:00 Resp 16 06/19/24 07:00 BP 152/91 06/19/24 07:00 Pulse Ox 99 06/19/24 07:00 FiO2 Intake & Output 06/18/24 06/19/24 06/19/24 18:59 06:59 18:59 Intake Total 838 360 118 Balance 838 360 118 Intake: Oral 838 360 118 Other: # Voids 1 3 # Bowel Movements 7 - Constitutional General appearance: Present: cooperative, no acute distress - Respiratory Details: No difficulty with respiration - Gastrointestinal Gastrointestinal Comment(s): Soft, nontender, nondistended, no rebound, no guarding - Psychiatric Psychiatric: Present: A&O x's 3, appropriate affect - Labs CBC & Chem 7: 06/18/24 05:42 06/18/24 05:42 Labs: Abnormal Lab Results - Last 24 Hours (Table) 06/18/24 06/18/24 Range/Units 05:42 05:42 Hgb 12.6 L (13.0-17.0) g/dL Hct 38.7 L (39.6-50.0) % Immature Gran # 0.07 H (0.00-0.04) X 10*3/uL Eosinophils # 0.48 H (0.04-0.35) X 10*3/uL Calcium 8.3 L (8.7-10.3) mg/dL Microbiology - Last 24 Hours (Table) 06/17/24 12:02 Stool Culture - Preliminary Stool 06/17/24 01:15 Blood Culture - Preliminary Blood Assessment and Plan Plan: 53-year-old male with diverticulitis/colitis that appears to be resolving. Continue with diet and continue with IV antibiotics at this time. When patient stable for discharge, follow-up in surgical clinic with plan for colonoscopy in 6 to 8 weeks.
--- NOTE | 2024-06-19 14:07 | P.PN ---
Subjective Progress Note Date: 06/18/24 53-year-old gentleman with past medical history significant for hypertension, hyperlipidemia presented to the ER with complaints of nausea, multiple daily episodes of diarrhea and abdominal pain on and off times approximately 2 weeks since his return from a trip to [place]. Reports abdominal "soreness", worse on the left side. Completed Cipro and Flagyl, prescribed at a urgent care center without significant improvement, accompanied by fevers and presented to the ER. Denies prior occurrences. reports while in [place] did not consume [place], raw fish; consumed [employer] hot chicken. denies chest pain, palpitations or shortness of breath. Tachycardic on admission with Tmax 101.2, WBC 14.6. CT of abdomen pelvis reported moderate wall thickening in the transverse colon extending into the left colon no free air or mesenteric air, no well-formed fluid collection or abscess, no abnormal small or large bowel dilatation, small to moderate size fat-containing left inguinal hernia.initiated on IV fluids and Zosyn. Objective - Vital Signs Vital signs: Vital Signs Temp 98.7 F 06/18/24 07:00 Pulse 68 06/18/24 07:00 Resp 16 06/18/24 07:00 BP 131/79 06/18/24 07:00 Pulse Ox 97 06/18/24 07:00 FiO2 Intake & Output 06/17/24 06/18/24 06/18/24 18:59 06:59 18:59 Intake Total 236 118 Balance 236 118 Intake: Oral 236 118 Other: # Voids 8 1 # Bowel Movements 8 - Exam VITAL SIGNS: [As above] GENERAL: Well-nourished ,alert and oriented x 3, sitting up in bed, no acute distress HEENT: Normocephalic, atraumatic conjunctivae normal. eyes normal. NECK: Supple, no JVD. No thyroid enlargement. No LNs CARDIOVASCULAR: S1, S2 regular.. No murmur RESPIRATION: Unlabored, equal air entry, breath sounds diminished in the bases. No rhonchi or crackles. No bronchial breathing. ABDOMEN: Soft, nondistended, mild left lower quadrant tenderness. No guarding. no masses palpable. No ascites, No hepatosplenomegaly.Bowel sounds heard. LEGS: No edema. no swelling NERVOUS SYSTEM: Cranial N 2-12 grossly normal. No focal deficits. Strength and sensation grossly intact.. Skin: Warm and dry, no rash. - Labs CBC & Chem 7: 06/18/24 05:42 06/18/24 05:42 Labs: Abnormal Lab Results - Last 24 Hours (Table) 06/17/24 06/17/24 06/18/24 Range/Units 12:02 14:43 05:42 Hgb 12.6 L (13.0-17.0) g/dL Hct 38.7 L (39.6-50.0) % Immature Gran # 0.07 H (0.00-0.04) X 10*3/uL Eosinophils # 0.48 H (0.04-0.35) X 10*3/uL Calcium (8.7-10.3) mg/dL Ur Specific [place] 1.043 H (1.001-1.035) Urine Protein 1+ H (Negative) Urine Mucus Occasional H (None) /hpf Stool Lactoferrin Positive A (Negative) 06/18/24 Range/Units 05:42 Hgb (13.0-17.0) g/dL Hct (39.6-50.0) % Immature Gran # (0.00-0.04) X 10*3/uL Eosinophils # (0.04-0.35) X 10*3/uL Calcium 8.3 L (8.7-10.3) mg/dL Ur Specific [place] (1.001-1.035) Urine Protein (Negative) Urine Mucus (None) /hpf Stool Lactoferrin (Negative) Assessment and Plan Assessment: Sepsis secondary to abdominal pain, left lower quadrant, CT reporting colitis, possible diverticulitis Hypertension For lipidemia Plan: Continue on current medication regimen, urgent and symptomatic treatment. Maintain IV fluid hydration and antibiotics. Infectious disease and general surgery consults in place, recommendations pending.
--- NOTE | 2024-06-19 14:16 | P.PN ---
Subjective Progress Note Date: 06/19/24 53-year-old gentleman with past medical history significant for hypertension, hyperlipidemia presented to the ER with complaints of nausea, multiple daily episodes of diarrhea and abdominal pain on and off times approximately 2 weeks since his return from a trip to [place]. Reports abdominal "soreness", worse on the left side. Completed Cipro and Flagyl, prescribed at a urgent care center without significant improvement, accompanied by fevers and presented to the ER. Denies prior occurrences. reports while in [place] did not consume sushi, raw fish; consumed [employer] hot chicken. denies chest pain, palpitations or shortness of breath. Tachycardic on admission with Tmax 101.2, WBC 14.6. CT of abdomen pelvis reported moderate wall thickening in the transverse colon extending into the left colon no free air or mesenteric air, no well-formed fluid collection or abscess, no abnormal small or large bowel dilatation, small to moderate size fat-containing left inguinal hernia.initiated on IV fluids and Zosyn. 06/19/2024 Patient is seen and evaluated sitting up in bed; reports improving abdominal pain; does get somewhat worse with meals; less diarrhea in the last 24 hours Vital signs are reviewed and remained stable patient presented hospital with sepsis in this patient who did have a fever elevated white count meeting criteria for SIRS source is likely colitis with a question of diverticulitis uncomplicated no evidence of any perforation or abscess formation will need to cover for the enteric gram-negative both aerobes and anaerobes failing outpatient oral Cipro therapy stool for Cryptosporidium, C. difficile negative stool culture pending patient did have improvement of white count we will continue Zosyn 3.37 g every 8 hours and monitor clinical course closely Objective - Vital Signs Vital signs: Vital Signs Temp 98.2 F 06/19/24 07:00 Pulse 71 06/19/24 07:00 Resp 16 06/19/24 07:00 BP 152/91 06/19/24 07:00 Pulse Ox 99 06/19/24 07:00 FiO2 Intake & Output 06/18/24 06/19/24 06/19/24 18:59 06:59 18:59 Intake Total 838 360 118 Balance 838 360 118 Intake: Oral 838 360 118 Other: # Voids 1 3 # Bowel Movements 7 - Exam VITAL SIGNS: [As above] GENERAL: Well-nourished ,alert and oriented x 3, sitting up in bed, no acute distress HEENT: Normocephalic, atraumatic conjunctivae normal. eyes normal. NECK: Supple, no JVD. No thyroid enlargement. No LNs CARDIOVASCULAR: S1, S2 regular.. No murmur RESPIRATION: Unlabored, equal air entry, breath sounds diminished in the bases. No rhonchi or crackles. No bronchial breathing. ABDOMEN: Soft, nondistended, mild left lower quadrant tenderness. No guarding. no masses palpable. No ascites, No hepatosplenomegaly.Bowel sounds heard. LEGS: No edema. no swelling NERVOUS SYSTEM: Cranial N 2-12 grossly normal. No focal deficits. Strength and sensation grossly intact.. Skin: Warm and dry, no rash. - Labs CBC & Chem 7: 06/18/24 05:42 06/18/24 05:42 Labs: Microbiology - Last 24 Hours (Table) 06/17/24 12:02 Stool Culture - Preliminary Stool 06/17/24 01:15 Blood Culture - Preliminary Blood Assessment and Plan Assessment: Sepsis secondary to abdominal pain, left lower quadrant, CT reporting colitis, p ossible diverticulitis Hypertension For lipidemia Plan: Continue on current medication regimen, urgent and symptomatic treatment. Maintain IV fluid hydration and antibiotics. Infectious disease and general surgery consults in place, recommendations pending.
[2024-06-19] MEDS: ACETAMINOPHEN TAB 325 MG TAB PO PRN (16:19)
--- NOTE | 2024-06-19 21:32 | P.PN ---
Subjective Progress Note Date: 06/19/24 Principal diagnosis: Reason for follow-up is colitis Patient is a 53-year-old male with a past medical history significant for arthritis hernia repair x 2 never smoker presenting to the hospital for evaluation of abdominal pain symptom has been going on for about 2 weeks failing outpatient oral Cipro and Flagyl CT abdominal pelvis shows evidence of colitis involving the transverse and descending colon.Stool for C. difficile negative. On today's evaluation that is 06/19/2024,the patient denies any fever or any chills, patient is breathing comfortably on room air, the patient denies chest pain shortness of breath and no significant cough, patient abdominal pain has decreased intensity no nausea vomiting and diarrhea has slowed. The patient white count was 7.16 yesterday no CBC was done today blood and stool cultures are pending Objective - Vital Signs Vital signs: Vital Signs Temp 98.5 F 06/19/24 01:07 Pulse 84 06/19/24 01:07 Resp 18 06/19/24 01:07 BP 136/84 06/19/24 01:07 Pulse Ox 98 06/19/24 01:07 FiO2 Intake & Output 06/18/24 06/19/24 06/19/24 18:59 06:59 18:59 Intake Total 838 360 Balance 838 360 Intake: Oral 838 360 Other: # Voids 1 3 # Bowel Movements 7 - Exam GENERAL DESCRIPTION: Middle-age male up in the chair in no distress RESPIRATORY SYSTEM: Unlabored breathing , decreased breath sounds at bases HEART: S1 S2 regular rate and rhythm , ABDOMEN: Soft , no tenderness EXTREMITIES: No edema feet - Labs CBC & Chem 7: 06/18/24 05:42 06/18/24 05:42 Labs: Abnormal Lab Results - Last 24 Hours (Table) 06/17/24 06/18/24 06/18/24 Range/Units 12:02 05:42 05:42 Hgb 12.6 L (13.0-17.0) g/dL Hct 38.7 L (39.6-50.0) % Immature Gran # 0.07 H (0.00-0.04) X 10*3/uL Eosinophils # 0.48 H (0.04-0.35) X 10*3/uL Calcium 8.3 L (8.7-10.3) mg/dL Stool Lactoferrin Positive A (Negative) Microbiology - Last 24 Hours (Table) 06/17/24 01:15 Blood Culture - Preliminary Blood Assessment and Plan (1) Sepsis Current Visit: Yes Status: Acute Code(s): A41.9 - SEPSIS, UNSPECIFIED ORGANISM SNOMED Code(s): 97931779 (2) Failure of outpatient treatment Current Visit: Yes Status: Acute Code(s): Z78.9 - OTHER SPECIFIED HEALTH STATUS SNOMED Code(s): 410304222 (3) Infectious colitis Current Visit: Yes Status: Acute Code(s): A09 - INFECTIOUS GASTROENTERITIS AND COLITIS, UNSPECIFIED SNOMED Code(s): 58720770 Plan: 1patient presented hospital with sepsis in this patient who did have a fever elevated white count meeting criteria for SIRS source is likely colitis with a question of diverticulitis uncomplicated no evidence of any perforation or abscess formation will need to cover for the enteric gram-negative both aerobes and anaerobes failing outpatient oral Cipro therapy 2 stool for Cryptosporidium, C. difficile negative stool culture currently pending 3patient has shown some clinical improvement and the white count normalized, patient continue Zosyn 3.37 g every 8 hours and monitor clinical course closely Dictation was produced using [employer] dictation software. please excuse any grammatical, word or spelling errors. Time with Patient: Less than 30
[2024-06-20 02:07] VITALS: RESP 16
[2024-06-20 11:17] LABS: BUN/Creat Ratio 11.45 Ratio (12.00-20.00); Blood Urea Nitrogen 12.6 mg/dL (9.0-27.0); Calcium 8.8 mg/dL (8.7-10.3); Carbon Dioxide 24.5 mmol/L (21.6-31.8); Chloride 108 mmol/L (96-109); Glucose 80 mg/dL (70-110); Sodium 143 mmol/L (135-145)
--- NOTE | 2024-06-20 14:40 | P.PN ---
Subjective Progress Note Date: 06/20/24 Patient seen and examined at bedside. No acute events. Abdominal pain improving. Objective - Vital Signs Vital signs: Vital Signs Temp 98.3 F 06/20/24 07:00 Pulse 78 06/20/24 07:00 Resp 16 06/20/24 07:00 BP 152/89 06/20/24 07:00 Pulse Ox 97 06/20/24 07:00 FiO2 Intake & Output 06/19/24 06/20/24 06/20/24 18:59 06:59 18:59 Intake Total 118 236 Balance 118 236 Intake: Oral 118 236 Other: Voiding Method Toilet # Voids 4 2 # Bowel Movements 2 1 - Constitutional General appearance: Present: cooperative - Gastrointestinal Gastrointestinal Comment(s): Soft, nontender, nondistended, no rebound, no guarding - Psychiatric Psychiatric: Present: A&O x's 3 - Labs CBC & Chem 7: 06/18/24 05:42 06/18/24 05:42 Labs: Microbiology - Last 24 Hours (Table) 06/17/24 12:02 Stool Culture - Preliminary Stool 06/17/24 01:15 Blood Culture - Preliminary Blood Assessment and Plan Plan: 53-year-old male with colitis that continues to appear to improved. Tolerating diet. Surgically stable for discharge with plan of outpatient antibiotics and outpatient follow-up for colonoscopy.
[2024-06-20 15:30] VITALS: BP 131/81; PULSE 66; TEMP 97.9
--- NOTE | 2024-06-20 15:35 | P.PN ---
Subjective Progress Note Date: 06/20/24 Principal diagnosis: Reason for follow-up is colitis Patient is a 53-year-old male with a past medical history significant for arthritis hernia repair x 2 never smoker presenting to the hospital for evaluation of abdominal pain symptom has been going on for about 2 weeks failing outpatient oral Cipro and Flagyl CT abdominal pelvis shows evidence of colitis involving the transverse and descending colon.Stool for C. difficile negative. On today's evaluation that is 06/20/2024,the patient remains to be afebrile, patient is on room air not requiring supplemental oxygen and denies any shortness of breath no chest pain or cough.Patient denies having any nausea or vomiting, did have resolution of his abdominal pain and diarrhea has improved having soft bowel movement patient mention feeling better wants to go home. Patient did have a creatinine of 1.1 no CBC was done today stool cultures are pending blood culture for negative Objective - Vital Signs Vital signs: Vital Signs Temp 98.3 F 06/20/24 07:00 Pulse 78 06/20/24 07:00 Resp 16 06/20/24 07:00 BP 152/89 06/20/24 07:00 Pulse Ox 97 06/20/24 07:00 FiO2 Intake & Output 06/19/24 06/20/24 06/20/24 18:59 06:59 18:59 Intake Total 118 236 Balance 118 236 Intake: Oral 118 236 Other: Voiding Method Toilet # Voids 4 2 # Bowel Movements 2 1 - Exam GENERAL DESCRIPTION: Middle-age male up in the chair in no distress RESPIRATORY SYSTEM: Unlabored breathing , decreased breath sounds at bases HEART: S1 S2 regular rate and rhythm , ABDOMEN: Soft , no tenderness EXTREMITIES: No edema feet - Labs CBC & Chem 7: 06/18/24 05:42 06/20/24 04:05 Labs: Abnormal Lab Results - Last 24 Hours (Table) 06/20/24 Range/Units 04:05 BUN/Creatinine Ratio 11.45 L (12.00-20.00) Ratio Microbiology - Last 24 Hours (Table) 06/17/24 12:02 Stool Culture - Preliminary Stool 06/17/24 01:15 Blood Culture - Preliminary Blood Assessment and Plan (1) Sepsis Current Visit: Yes Status: Acute Code(s): A41.9 - SEPSIS, UNSPECIFIED ORGANISM SNOMED Code(s): 11662207 (2) Failure of outpatient treatment Current Visit: Yes Status: Acute Code(s): Z78.9 - OTHER SPECIFIED HEALTH STATUS SNOMED Code(s): 682909035 (3) Infectious colitis Current Visit: Yes Status: Acute Code(s): A09 - INFECTIOUS GASTROENTERITIS AND COLITIS, UNSPECIFIED SNOMED Code(s): 31798382 Plan: 1patient presented hospital with sepsis in this patient who did have a fever elevated white count meeting criteria for SIRS source is likely colitis with a question of diverticulitis uncomplicated no evidence of any perforation or abscess formation will need to cover for the enteric gram-negative both aerobes and anaerobes failing outpatient oral Cipro therapy 2 stool for Cryptosporidium, C. difficile negative stool culture currently pending 3patient has shown some clinical improvement and the white count normalized, patient insisting on going home and has been cleared for discharge by surgery we will recommend a 10-day course of oral Ceftin and Flagyl on discharge prescription sent to the pharmacy Dictation was produced using [employer] dictation software. please excuse any grammatical, word or spelling errors. Time with Patient: Less than 30
== END 2024-06-20 16:06 | disposition home or self-care (01) ==
LOC: EC 20:14 → 6NMEDSUR 06-17 04:32
PROVIDERS: ADMIT Family Medicine; ATTEND Family Medicine
DX: A41.9 Sepsis, unspecified organism (principal); A09 Infectious gastroenteritis and colitis, unspecified; I10 Essential (primary) hypertension; E78.5 Hyperlipidemia, unspecified; M19.079 Primary osteoarthritis, unspecified ankle and foot; Z82.49 Family history of ischemic heart disease and other diseases of the circulatory system; Z79.899 Other long term (current) drug therapy
CPT/HCPCS: 36415; 74177; 80048; 80053; 81001; 82150; 83605; 83630; 83690; 83735; 84100; 85025; 87040; 87045; 87046; 87324; 87328; 96365; 96366; 96375; 96376; 99285